=== PATIENT | male | born 1980 | race African-American/Black ===

== ENCOUNTER 2017-12-28 12:48 | Emergency (ER) | payer SELFPAY ==
[~2017-12-28] VITALS: Ht 160 cm; Wt 100.0 kg
[2017-12-28] MEDS ORDERED: SODIUM CHLORIDE 0.9% 1,000 ML IV ONE (14:41)
[2017-12-28] MEDS ORDERED: ONDANSETRON HCL 4MG/2ML INJ IV STA (14:41)
[2017-12-28 15:52] LABS: BASOPHILS % 0.7 % (0.0-2.0); EOSINOPHILS % 0.2 % (0.0-5.0); HEMATOCRIT. 45.5 % (42.0-52.0); HEMOGLOBIN. 15.8 g/dL (14.0-18.0); LYMPHOCYTES % 10.6 % (20.0-50.0); MEAN CORPUSCULAR HEMOGLOBIN 29.1 pg (28.0-32.0); MEAN CORPUSCULAR VOLUME 83.9 fL (80.0-94.0); MEAN PLATELET VOLUME 9.7 fl (7.4-10.4); MONOCYTES % 10.8 % (2.0-8.0); NEUTROPHILS % 77.7 % (40.0-76.0); PLATELET 203 x1000/uL (130-400); RED BLOOD CELL COUNT 5.43 mill/uL (4.7-6.1); RED CELL DISTRIBUTION WIDTH 13.6 % (11.6-14.6)
[2017-12-28 15:56] LABS: PROTHROMBIN TIME 10.2 sec (9.1-11.1)
[2017-12-28 15:58] LABS: CHLORIDE 99 mEq/L (98-107)
[2017-12-28] MEDS ORDERED: METHYLPREDNISOLONE SOD SUCC 125 MG/2 ML VIAL IV ONE (16:30)
[2017-12-28 17:09] LABS: CLARITY URINE CLEAR (CLEAR); COLOR URINE DARK YELLOW (YELLOW); KETONES URINE 3+ (NEGATIVE); LEUKOCYTE ESTERASE URINE NEGATIVE (NEGATIVE); NITRITE URINE NEGATIVE (NEGATIVE); OCCULT BLOOD URINE NEGATIVE (NEGATIVE); PH URINE 5.5 (4.5-8.0); PROTEIN URINE 2+ (NEGATIVE); SPECIFIC GRAVITY URINE 1.033 (1.005-1.030)
[2017-12-28] MEDS ORDERED: PENICILLIN V POTASSIUM 250MG TABLET PO SCH (18:00)
[2017-12-28 19:15] VITALS: BP 150/78
== END 2017-12-28 19:16 | disposition home or self-care (01) ==
LOC: ER 12:48
DX: J02.0 Streptococcal pharyngitis (principal); R53.1 Weakness; M79.10 Myalgia, unspecified site; F12.10 Cannabis abuse, uncomplicated; Z98.890 Other specified postprocedural states
CPT/HCPCS: 36415; 80053; 81003; 83605; 83690; 85025; 85610; 87040; 87430; 96374; 96375; 99284; J2405; J2930; J7030